=== PATIENT | female | born 2000 ===

== ENCOUNTER 2025-09-11 13:00 | Emergency (ER) | payer SELFPAY | END 2025-09-11 13:27 | disposition other institution (70) | LOC: ER 13:24 | DX: Z71.1 Person with feared health complaint in whom no diagnosis is made (principal) | CPT/HCPCS: 36415; 80076; 86706; 86803; 87340; 87389 ==

== ENCOUNTER 2025-09-11 16:37 | Outpatient (REF) | payer SELFPAY ==
[2025-09-11 15:13] LABS: ALT 20 U/L (10-49); AST 19 U/L (<34); Albumin 4.5 g/dL (3.4-5.0); Alkaline Phosphatase 62 U/L (46-116); Bilirubin, Direct 0.2 mg/dL (<=0.3); Bilirubin, Total 0.90 mg/dL (0.2-1.2); Total Protein 7.2 g/dL (5.7-8.2)
[2025-09-23 10:01] LABS: HIV-1/2 Ag & Ab Screen Negative (Negative)
[2025-09-23 10:02] LABS: HBs Antibody, Quant 288.6 mIU/mL (See Note); Hepatitis C Ab w Rflx HCV PCR Negative (Negative)
[2025-09-23 10:03] LABS: Hepatitis B Surface Ab Positive
== END 2025-09-11 16:38 | disposition home or self-care (01) ==
LOC: LBO 16:37
DX: Z11.59 Encounter for screening for other viral diseases (principal); Z11.4 Encounter for screening for human immunodeficiency virus [HIV]
CPT/HCPCS: 36415; 80076; 86706; 86803; 87340; 87389